=== PATIENT | female | born 1960 | race Caucasian/White ===

== ENCOUNTER 2017-12-09 18:58 | Emergency (ER) | payer OTHER, MEDICAID, SELFPAY ==
[2017-12-09 19:16] VITALS: BP 133/84; PULSE 111; RESP 20; TEMP 37.4; O2SAT 98; BMI 30.9
--- NOTE | 2017-12-09 19:35 | ED_ITS ---
HPI - Abdominal Pain General Chief Complaint: Abdominal Pain Stated Complaint: LOWER LEFT SIDED ABD PAIN Time Seen by Provider: 12/09/17 19:09 Source: patient Mode of arrival: ambulatory Limitations: no limitations History of Present Illness HPI narrative: Patient is a 57-year-old female presenting with left lower quadrant pain. She has a history of diverticulitis and UTI. She has had 4 doses of Cipro for a UTI. However the pain in her left lower quadrant has got and worse. She has had low-grade fevers on nothing over 100 and some body aches. She is having normal bowel movements no nausea or vomiting. She feels like this is her diverticulitis. She has a history of complicated diverticulitis requiring a colostomy she has not had an episode since about 2014. She has had multiple CT scans 1 recently in [place] she would prefer not to do a CT scan if possible. She has been taking tramadol for her UTI pain which normally works and is not working now. MD complaint: abdominal pain Related Data Home Medications Medication Instructions Recorded Confirmed lisinopril [Prinivil] 20 mg PO QDAY #0 07/01/11 ciprofloxacin HCl [Cipro] 500 mg PO Q12H 12/09/17 12/09/17 irbesartan 37.5 mg PO DAILY 12/09/17 12/09/17 metoprolol tartrate 12.5 mg PO BID 12/09/17 12/09/17 Previous Rx's Medication Instructions Recorded VANCOMYCIN HCL (VANCOMYCIN 250 mg PO QID #20 07/27/11 HYDROCHLORIDE) TRAMADOL HCL (TRAMADOL 50 mg PO QID #60 10/19/11 HYDROCHLORIDE) lisinopril 20 mg PO QDAY #90 10/28/11 hydrocodone-acetaminophen [[place]] 1 tab PO Q4H PRN #6 tab 07/27/17 sulfamethoxazole-trimethoprim 1 tab PO BID #18 tab 08/29/17 hydrocodone-acetaminophen 1 tab PO Q6H PRN #10 tab 12/09/17 metronidazole 500 mg PO TID #21 tab 12/09/17 Allergies Allergy/AdvReac Type Severity Reaction Status Date / Time levofloxacin [LEVOFLOXACIN] Allergy Unknown SHOULDER Verified 12/09/17 19:22 PAIN lisinopril [LISINOPRIL] Allergy Unknown COUGH Verified 12/09/17 19:22 losartan [LOSARTAN] Allergy Unknown SHOULDER Verified 12/09/17 19:22 PAIN Review of Systems Review of Systems All systems reviewed & are unremarkable except as noted in HPI and below Constitutional Reports body ache(s), Denies chills, Reports fatigue and Denies increased appetite Cardiovascular Denies chest pain, Denies irregular heart rhythm, Denies lightheadedness, Denies palpitations, Denies dyspnea, Denies dyspnea on exertion and Denies orthopnea Respiratory Denies cough, Denies dyspnea, Denies dyspnea on exertion and Denies wheezing Gastrointestinal Gastrointestinal: Reports as per HPI Genitourinary Reports as per HPI Musculoskeletal Denies back pain, Denies muscle weakness, Denies numbness and Denies tingling Integumentary/Breasts Denies pruritus, Denies erythema, Denies rash and Denies wounds Neurologic Denies numbness and Denies tingling Endocrine Reports fatigue and Denies palpitations Allergic/Immunologic Denies wheezing PFS Medical History Hypertension (Acute) Diverticulitis (Acute) Ureter obstruction (Acute) Surgical History History of colostomy reversal (Acute) Nephrostomy status (Acute) Social History Smoking Status: Current every day smoker Exam Initial Vital Signs Initial Vital Signs: Vital Signs Temperature 99.4 F 12/09/17 19:16 Pulse Rate 111 H 12/09/17 19:16 Respiratory Rate 20 12/09/17 19:16 Blood Pressure 133/84 H 12/09/17 19:16 Pulse Oximetry 98 12/09/17 19:16 Const General: cooperative and well developed Nutritional Appearance: well nourished Orientation: alert, awake, oriented x3 and not confused Resp Effort & Inspection: normal respiratory effort, able to speak in complete sentences, no respiratory distress and no use of accessory muscles Auscultation: clear to auscultation bilaterally, no rales, no rhonchi and no wheezes Cardio Rate: regular rate Rhythm: regular rhythm Heart Sounds: no click, no gallops, no murmurs and no rubs Pulses: normal peripheral pulses GI Palpation: soft and tender (Mild tenderness left lower quadrant no guarding or rebound) Skin General: no rashes or lesions noted, No jaundice and No petechiae Neuro General: alert, oriented x3, gait normal and no focal motor deficits Speech: speech normal Course Orders Ordered: ED Orders 12/09/17 19:40 Complete Blood Count AUTO DIFF Stat Comprehensive Metabolic Panel Stat Lactate (Lactic Acid) Stat Lipase Stat 12/09/17 20:57 Urine Culture Stat Urine Microscopic Stat Discontinued Medications Acetaminophen (Tylenol) 975 mg PO NOW ONE Stop: 12/09/17 19:30 Last Admin: 12/09/17 19:49 Dose: 975 mg Hydrocodone Bitart/Acetaminophen (Vicodin Prepack) 1 bottle MISC SEEINSTR ONE Stop: 12/09/17 20:43 Last Admin: 12/09/17 21:04 Dose: 1 bottle Sodium Chloride (Normal Saline 0.9%) 1,000 mls @ 1,000 mls/hr IV CONT ADAM Last Infusion: 12/09/17 21:05 Dose: 1,000 mls/hr Admin: 12/09/17 19:50 Dose: 1,000 mls/hr Metronidazole (Metronidazole) 500 mg PO NOW ONE Stop: 12/09/17 20:42 Last Admin: 12/09/17 20:56 Dose: 500 mg Morphine Sulfate (Morphine) 2 mg IV NOW ONE Stop: 12/09/17 20:42 Last Admin: 12/09/17 20:50 Dose: 2 mg Ondansetron HCl (Zofran Odt Prepack) 1 bottle MISC SEEINSTR ONE Stop: 12/09/17 20:43 Last Admin: 12/09/17 21:04 Dose: 1 bottle Vital Signs - 8 hr 12/09/17 19:16 12/09/17 19:49 12/09/17 20:36 Temperature 99.4 F 99.4 F Pulse Rate 111 H 84 Respiratory Rate 20 20 Blood Pressure 133/84 H Blood Pressure [Left Arm] 124/92 H Pulse Oximetry 98 96 12/09/17 21:02 Temperature 98.9 F Pulse Rate 81 Respiratory Rate 21 Blood Pressure 124/92 H Blood Pressure [Left Arm] Pulse Oximetry 90 L MDM - Abdominal Pain Differential Diagnosis Differential diagnosis: Likely abdominal pain, calculus of kidney, diverticulitis, pancreatitis, small bowel obstruction and other (Psoas abscess) Lab Data Attestation: I reviewed the patient's lab results. Result diagrams: 12/09/17 19:40 12/09/17 19:40 Lab Results 12/09/17 12/09/17 12/09/17 Range/Units 19:40 19:40 19:40 WBC 9.1 (4.5-11.0) X10^3/uL RBC 4.58 (4.0-5.2) X10^6/uL Hgb 13.9 (12.0-16.0) g/dL Hct 41.0 (36-46) % MCV 89.5 (80-100) fL MCH 30.4 (26-34) PG MCHC 33.9 (30-36) % RDW 13.4 (11.6-14.8) % Plt Count 279 (150-400) X10^3/uL Neut % (Auto) 71.2 (50-75) % Lymph % (Auto) 20.1 L (25-40) % [place] % (Auto) 5.0 (3-14) % Eos % (Auto) 2.8 (2-4) % Baso % (Auto) 0.9 (0-2) % Neut # (Auto) 6500 H (9770-1008) /uL Sodium 140 (137-145) mmol/L Potassium 3.7 (3.4-5.1) mmol/L Chloride 102 (98-107) mmol/L Carbon Dioxide 24 (22-32) mmol/L BUN 20 H (7-17) mg/dL Creatinine 1.40 H (0.52-1.04) mg/dL Estimated GFR 38.9 L (>60) mL/min BUN/Creatinine Ratio 14.3 (6-22) Glucose 154 H (70-100) mg/dL Lactate 1.6 (0.7-2.1) mmol/L Calcium 9.5 (8.4-10.2) mg/dL Total Bilirubin 0.5 (0.2-1.3) mg/dL AST 19 (14-36) IU/L ALT 22 (9-52) IU/L Alkaline Phosphatase 89 (38-126) U/L Total Protein 7.3 (6.3-8.2) g/dL Albumin 4.0 (3.5-5.0) g/dL Globulin 3.3 (1.7-4.1) g/dL Albumin/Globulin Ratio 1.2 (1.0-2.8) Lipase 48 (23-300) U/L Urine RBC (0-5/HPF) Urine WBC (0-5/HPF) Ur Squamous Epith Cells Urine Bacteria (None) Ur Culture Indicated? Micro UA Comment 12/09/17 Range/Units 20:57 WBC (4.5-11.0) X10^3/uL RBC (4.0-5.2) X10^6/uL Hgb (12.0-16.0) g/dL Hct (36-46) % MCV (80-100) fL MCH (26-34) PG MCHC (30-36) % RDW (11.6-14.8) % Plt Count (150-400) X10^3/uL Neut % (Auto) (50-75) % Lymph % (Auto) (25-40) % Good[place] % (Auto) (3-14) % Eos % (Auto) (2-4) % Baso % (Auto) (0-2) % Neut # (Auto) (2595-3796) /uL Sodium (137-145) mmol/L Potassium (3.4-5.1) mmol/L Chloride (98-107) mmol/L Carbon Dioxide (22-32) mmol/L BUN (7-17) mg/dL Creatinine (0.52-1.04) mg/dL Estimated GFR (>60) mL/min BUN/Creatinine Ratio (6-22) Glucose (70-100) mg/dL Lactate (0.7-2.1) mmol/L Calcium (8.4-10.2) mg/dL Total Bilirubin (0.2-1.3) mg/dL AST (14-36) IU/L ALT (9-52) IU/L Alkaline Phosphatase (38-126) U/L Total Protein (6.3-8.2) g/dL Albumin (3.5-5.0) g/dL Globulin (1.7-4.1) g/dL Albumin/Globulin Ratio (1.0-2.8) Lipase (23-300) U/L Urine RBC 1-5/hpf (0-5/HPF) Urine WBC >100/hpf H (0-5/HPF) Ur Squamous Epith Cells 0-1 /hpf Urine Bacteria Few (2-10) H (None) Ur Culture Indicated? Specimen cultured Micro UA Comment Not Reportable MDM Narrative Medical decision making narrative: Patient's blood work is within normal limits no significant lactic acid or leukocytosis. She has been on Cipro at least 4 doses. Abdomen is reexamined still mildly tender in left lower quadrant though she is resting comfortably. She would like something more for pain Tylenol did not help. We again discussed imaging and CT however she does not appear toxic she has had multiple CT scans. On at this time we agreed to start Flagyl and pain control. If pain is worsening she is to return to the ED. She understands and knows consequences and possible complications of diverticulitis. She has not had an abscess in the past. Discharge Plan Departure Patient Disposition: Home, Self-Care Clinical Impression: Diverticulitis Discharge Date/Time: 12/09/17 21:02 Interventions: ED Discharge Assessment Last Done: 12/09/17 21:02 Instructions: Diverticulitis Activity Restrictions/Additional Instructions: *You have been diagnosed with probable diverticulitis *What to do: Blood work is within normal limits today. If you should have continued pain despite addition of Flagyl, you will likely need a CT. *Continue to take medications as directed At your request you're medications have been faxed to [facility] in [place] *Follow up with your primary care provider in 2-3 days, and/or urologist *Return to ER if you should have increasing pain, fever, body or any new, worsening or concerning symptoms CONTROLLED SUBSTANCE DISCHARGE (Narcotoic/benzodiazepine/Flexeril/Phenergan) 1. You have been prescribed narcotic medications, it does have acetaminophen/ Tylenol/paracetamol in it so do not take extra Tylenol or Tylenol containing products 2. Please understand that we cannot provide further refills of narcotics, benzodiazepines or controlled substances through the ED and her pain management will need to be through your provider. 3. While on these medications you cannot drive or operate heavy machinery. 4. You cannot sign legal documents or perform any duties such as this. 5. As long as you're taking opiate pain medications he should also be taking a stool softener such as Colace, Dulcolax, MiraLAX or prune juice, to help avoid constipation. Prescriptions: New hydrocodone-acetaminophen 5-325 mg tablet 1 tab PO Q6H PRN (Reason: pain) Qty: 10 RF: 0 metronidazole 500 mg tablet 500 mg PO TID Qty: 21 RF: 0 No Action lisinopril [Prinivil] 20 MG tablet 20 mg PO QDAY Qty: 0 RF: 0 VANCOMYCIN HCL (VANCOMYCIN HYDROCHLORIDE) 250 mg PO QID Qty: 20 RF: 0 TRAMADOL HCL (TRAMADOL HYDROCHLORIDE) 50 mg PO QID Qty: 60 RF: 1 lisinopril 20 MG tablet 20 mg PO QDAY Qty: 90 RF: 0 hydrocodone-acetaminophen [[place]] 5 MG/325 MG tablet 1 tab PO Q4H PRNQty: 6 RF: 0 sulfamethoxazole-trimethoprim 800 MG/160 MG tablet 1 tab PO BID Qty: 18 RF: 0 metoprolol tartrate 25 mg Tablet 12.5 mg PO BID RF: 0 irbesartan 75 mg Tablet 37.5 mg PO DAILY RF: 0 ciprofloxacin HCl [Cipro] 500 mg Tablet 500 mg PO Q12H RF: 0
[2017-12-09 19:49] VITALS: TEMP 37.4
[2017-12-09] MEDS: ACETAMINOPHEN 325 MG TABLET 975 MG PO (19:49)
[2017-12-09] MEDS: SODIUM CHLORIDE 0.9% 1,000 ML 1000 ML IV (19:50)
[2017-12-09 19:57] LABS: Add Manual Diff / Slide Review NO; Basophils Percent Auto 0.9 % (0-2); Eosinophils Percent Auto 2.8 % (2-4); Hemoglobin 13.9 g/dL (12.0-16.0); Lymphocytes Percent Auto 20.1 % (25-40); Mean Corpuscular HGB Conc 33.9 % (30-36); Mean Corpuscular Hemoglobin 30.4 PG (26-34); Mean Corpuscular Volume 89.5 fL (80-100); Neutrophils Absolute Auto 6500 /uL (3000-5900); Neutrophils Percent Auto 71.2 % (50-75); Platelet Count 279 X10^3/uL (150-400); Red Blood Cell Count 4.58 X10^6/uL (4.0-5.2); Red Cell Distribution Width 13.4 % (11.6-14.8); White Blood Cell Count 9.1 X10^3/uL (4.5-11.0)
[2017-12-09 20:04] LABS: Lactate (Lactic Acid) 1.6 mmol/L (0.7-2.1)
[2017-12-09 20:05] LABS: Alanine Aminotransferase 22 IU/L (9-52); Albumin Globulin Ratio 1.2 (1.0-2.8); Alkaline Phosphatase 89 U/L (38-126); Aspartate Aminotransferase 19 IU/L (14-36); BUN Creatinine Ratio 14.3 (6-22); Bilirubin Total 0.5 mg/dL (0.2-1.3); Blood Urea Nitrogen 20 mg/dL (7-17); Calcium 9.5 mg/dL (8.4-10.2); Carbon Dioxide 24 mmol/L (22-32); Chloride 102 mmol/L (98-107); Estimated Glomerular Filt Rate 38.9 mL/min (>60); Globulin 3.3 g/dL (1.7-4.1); Glucose 154 mg/dL (70-100); HEMOLYSIS < 15 (0-50); Lipase 48 U/L (23-300); Potassium 3.7 mmol/L (3.4-5.1); Sodium 140 mmol/L (137-145); Total Protein 7.3 g/dL (6.3-8.2)
[2017-12-09 20:36] VITALS: BP 124/92; PULSE 84; RESP 20; O2SAT 96
[2017-12-09] MEDS: MORPHINE 4 MG/ML INJ 2 MG IV (20:50)
[2017-12-09] MEDS: metroNIDAZOLE 250 MG TABLET 500 MG PO (20:56)
[2017-12-09 21:02] VITALS: BP 124/92; PULSE 81; RESP 21; TEMP 37.2; O2SAT 90
[2017-12-09] MEDS: ONDANSETRON 4 MG ODT PREPACK 1 BOTTLE MISC (21:04)
[2017-12-09] MEDS: HYDROCODONE/ACET 5/325 PREPACK 1 BOTTLE MISC (21:04)
[2017-12-09 21:16] LABS: RBC Urine 1-5/HPF (0-5/HPF)
[2017-12-09 21:17] LABS: Bacteria Urine Few (2-10); Culture Indicated Urine Specimen Cultured; Squamous Epithelial Cell Urine 0-1 /HPF; WBC Urine >100/HPF (0-5/HPF)
== END 2017-12-09 21:02 | disposition home or self-care (01) ==
PROVIDERS: Emergency Provider Emergency Medicine
DX: K57.92 Diverticulitis of intestine, part unspecified, without perforation or abscess without bleeding (principal)
CPT/HCPCS: 36591; 80053; 81003; 81015; 83605; 83690; 85025; 87086; 96374; 99283; 99284; J2270

== ENCOUNTER → 2018-04-12 10:58 | Outpatient (CLI) | payer OTHER, MEDICAID, SELFPAY ==
[2018-04-12 12:21] LABS: Alanine Aminotransferase 26 IU/L (9-52); Albumin 4.4 g/dL (3.5-5.0); Albumin Globulin Ratio 1.5 (1.0-2.8); Alkaline Phosphatase 86 U/L (38-126); Aspartate Aminotransferase 22 IU/L (14-36); Bilirubin Total 0.5 mg/dL (0.2-1.3); Blood Urea Nitrogen 21 mg/dL (7-17); Calcium 9.5 mg/dL (8.4-10.2); Carbon Dioxide 27 mmol/L (22-32); Chloride 107 mmol/L (98-107); Cholesterol 235 mg/dL (140-199); Estimated Glomerular Filt Rate 35.8 mL/min (>60); Glucose 102 mg/dL (70-100); HDL Cholesterol 39 mg/dL (40-60); HEMOLYSIS < 15 (0-50); LDL Cholesterol Calculated 153 mg/dL (<100); Potassium 4.4 mmol/L (3.4-5.1); Sodium 145 mmol/L (137-145); Total Protein 7.4 g/dL (6.3-8.2); Triglycerides 215 mg/dL (35-150)
[2018-04-12 12:28] LABS: Hemoglobin A1C% w Est Avg Glu 5.7 % (4.0-6.0)
[2018-04-12 13:06] LABS: Thyroid Stimulating Hormone 1.16 uIU/mL (0.47-4.68)
== END ==
PROVIDERS: PCP Family Medicine; Visit Provider Family Medicine
DX: I10 Essential (primary) hypertension (principal); Z51.81 Encounter for therapeutic drug level monitoring
CPT/HCPCS: 36415; 80053; 80061; 83036; 84443

== ENCOUNTER → 2018-08-25 09:41 | Outpatient (CLI) | payer OTHER, MEDICAID, SELFPAY ==
[2018-08-25 10:23] LABS: Alanine Aminotransferase 27 IU/L (9-52); Albumin 4.3 g/dL (3.5-5.0); Albumin Globulin Ratio 1.4 (1.0-2.8); Alkaline Phosphatase 85 U/L (38-126); Aspartate Aminotransferase 27 IU/L (14-36); BUN Creatinine Ratio 11.3 (6-22); Bilirubin Total 0.5 mg/dL (0.2-1.3); Blood Urea Nitrogen 17 mg/dL (7-17); Calcium 9.4 mg/dL (8.4-10.2); Carbon Dioxide 25 mmol/L (22-32); Chloride 107 mmol/L (98-107); Cholesterol 242 mg/dL (140-199); Estimated Glomerular Filt Rate 35.8 mL/min (>60); Globulin 3.1 g/dL (1.7-4.1); Glucose 107 mg/dL (70-100); HDL Cholesterol 40 mg/dL (40-60); HEMOLYSIS 16 (0-50); LDL Cholesterol Calculated 156 mg/dL (<100); Sodium 140 mmol/L (137-145); Total Protein 7.4 g/dL (6.3-8.2); Triglycerides 229 mg/dL (35-150)
== END ==
PROVIDERS: PCP Family Medicine; Visit Provider Family Medicine
DX: E78.5 Hyperlipidemia, unspecified (principal); I10 Essential (primary) hypertension
CPT/HCPCS: 36415; 80053; 80061

== ENCOUNTER → 2019-01-16 12:41 | Outpatient (CLI) | payer MEDICARE, MEDICAID, OTHER, SELFPAY ==
[2019-01-16 13:38] LABS: Alanine Aminotransferase 25 IU/L (9-52); Albumin 4.6 g/dL (3.5-5.0); Albumin Globulin Ratio 1.4 (1.0-2.8); Alkaline Phosphatase 95 U/L (38-126); Aspartate Aminotransferase 23 IU/L (14-36); BUN Creatinine Ratio 14.3 (6-22); Bilirubin Total 0.7 mg/dL (0.2-1.3); Blood Urea Nitrogen 20 mg/dL (7-17); Calcium 9.9 mg/dL (8.4-10.2); Carbon Dioxide 27 mmol/L (22-32); Chloride 107 mmol/L (98-107); Cholesterol 178 mg/dL (140-199); Estimated Glomerular Filt Rate 38.8 mL/min (>60); Globulin 3.2 g/dL (1.7-4.1); Glucose 98 mg/dL (70-100); HDL Cholesterol 41 mg/dL (40-60); HEMOLYSIS < 15 (0-50); LDL Cholesterol Calculated 105 mg/dL (<100); Potassium 4.2 mmol/L (3.4-5.1); Sodium 143 mmol/L (137-145); Total Protein 7.8 g/dL (6.3-8.2); Triglycerides 161 mg/dL (35-150)
== END ==
PROVIDERS: PCP Family Medicine; Visit Provider Family Medicine
DX: E78.5 Hyperlipidemia, unspecified (principal); I10 Essential (primary) hypertension
CPT/HCPCS: 36415; 80053; 80061